=== PATIENT | female | born 1975 | race Caucasian/White ===

== ENCOUNTER 2016-11-15 11:29 | Emergency (ER) | payer MEDICAID, OTHER ==
[~2016-11-15] VITALS: Ht 162.6 cm; Wt 127.0 kg
[2016-11-15 11:30] VITALS: BP 118/80
== END 2016-11-15 12:53 | disposition home or self-care (01) ==
LOC: ED 12:47
DX: M79.651 Pain in right thigh (principal); F17.200 Nicotine dependence, unspecified, uncomplicated; Z88.8 Allergy status to other drugs, medicaments and biological substances
CPT/HCPCS: 99284

== ENCOUNTER 2016-12-19 10:20 | Emergency (ER) | payer MEDICAID ==
[~2016-12-19] VITALS: Ht 162.6 cm; Wt 131.7 kg
[2016-12-19 10:23] VITALS: BP 139/81
[2016-12-19] MEDS ORDERED: DEXAMETHASONE 4 MG TABLET ONE (10:55)
[2016-12-19] MEDS ORDERED: DEXAMETHASONE 4 MG/ML, 1ML PO ONE (11:00)
[2016-12-19] MEDS ORDERED: DEXAMETHASONE 4 MG TABLET PO SCH (11:00)
== END 2016-12-19 11:25 | disposition home or self-care (01) ==
LOC: ED 11:22
DX: J02.9 Acute pharyngitis, unspecified (principal); F17.210 Nicotine dependence, cigarettes, uncomplicated; J45.909 Unspecified asthma, uncomplicated; Z90.49 Acquired absence of other specified parts of digestive tract
CPT/HCPCS: 99282

== ENCOUNTER 2017-05-30 19:14 | Emergency (ER) | payer MEDICAID ==
[~2017-05-30] VITALS: Ht 162.6 cm; Wt 135.5 kg
[2017-05-30 19:22] VITALS: BP 155/108
[2017-05-30] MEDS ORDERED: BENZONATATE 100 MG CAPSULE PO ONE (20:30)
[2017-05-30] MEDS ORDERED: BENZONATATE 100 MG CAPSULE ONE (20:48)
== END 2017-05-30 20:54 | disposition home or self-care (01) ==
LOC: ED 20:39
DX: J02.8 Acute pharyngitis due to other specified organisms (principal); J00 Acute nasopharyngitis [common cold]; J45.909 Unspecified asthma, uncomplicated; B97.89 Other viral agents as the cause of diseases classified elsewhere
CPT/HCPCS: 71046; 87081; 87880; 99285